=== PATIENT | male | born 1980 | race Caucasian/White ===

== ENCOUNTER 2023-12-04 20:17 | Observation (INO) | payer OTHER ==
[~2023-12-04] VITALS: Ht 172.7 cm; Wt 84.5 kg
[2023-12-04] MEDS ORDERED: Morphine Sulfate 4 MG/1 ML Injection IV ONE (20:40)
[2023-12-04] MEDS ORDERED: Ondansetron HCl 2 MG / ML 2ML Vial IV ONE (20:40)
[2023-12-04] MEDS ORDERED: NS 1,000 ML IV SCH ×2 (21:10→22:35)
[2023-12-04] MEDS ORDERED: Acetaminophen 325 MG TABLET PO PRN (21:10)
[2023-12-04] MEDS ORDERED: Acetaminophen 325 MG TABLET PO ONE (21:10)
[2023-12-04] MEDS ORDERED: Ondansetron HCl 2 MG / ML 2ML Vial IV PRN (21:10)
[2023-12-04] MEDS ORDERED: Morphine Sulfate 4 MG/1 ML Injection IV PRN (21:15)
[2023-12-04 22:31] VITALS: BP 140/77
--- NOTE | 2023-12-04 23:07 | NUR ---
ARRIVAL TO UNIT PT ARRIVED TO UNIT AT APPROX 2230. PT WAS ON GURNEY AND TRANSFERRED TO BED W/O ASST. PT ABLE TO ANSWER ALL QUESTIONS. PT ABD TNEDER TO PALP, MILDLY DISTENDED. PT HAVING TO N/V AT THIS TIME, RUNNING A FEVER OF 101.1. PT WILL BE NPO AT [facility], FOR SURGERY TOMORROW. NO OTHER NEEDS AT THIS TIME, CALL LIGHT WITHIN REACH
[2023-12-05] VITALS (13 sets, daily range): BP systolic 106–139; BP diastolic 65–86
--- NOTE | 2023-12-05 05:01 | NUR ---
SHIFT SUMMARY NO ACUTE CHANGES SINCE COMING TO THE UNIT. PT HAS BEEN RESTING. NPO SINCE MN. FLUIDS RUNNING. PT STATES HAS NOT VOIDED YET BUT IS GOING TO ATTEMPT HERE IN A LITTLE BIT. VSS. NO OTHER CONCERNS AT THIS TIME, CALL LIGHT WITHIN REACH
[2023-12-05] MEDS ORDERED: Lactated Ringer's 1,000 ML IV SCH ×2 (05:30→08:00)
[2023-12-05] MEDS ORDERED: Piperacillin/Tazobactam Sod 3.375 GM in NS 100 ML IV SCH (06:00)
--- NOTE | 2023-12-05 08:16 | NUR ---
PT TO OR AT THIS TIME
--- NOTE | 2023-12-05 08:25 | NUR ---
PT HAS 18G TO RIGHT HAND THAT FLUSHES WELL AND FLOWS TO GRAVITY.
--- NOTE | 2023-12-05 08:27 | NUR ---
PT HERE VIA [facility] APPY BY DR. PAREKH. Patient confirms NPO status and agrees with scheduled surgery. Pre-Op teaching done. Pt verbalizes understanding. History, Chart, Medications and Allergies reviewed before start of procedure.
[2023-12-05] MEDS ORDERED: FLU VACC TS2024-25(6MOS UP)/PF 45 MCG/0.5 ML SYRINGE IM ONE (08:30)
[2023-12-05] MEDS ORDERED: OxyCODONE HCL 5 MG TAB PO PRN (08:35)
[2023-12-05] MEDS ORDERED: Ondansetron HCl 2 MG / ML 2ML Vial IV PRN (08:35)
[2023-12-05] MEDS ORDERED: Ketorolac Tromethamine 15mg Vial IV PRN (08:40)
[2023-12-05] MEDS ORDERED: Bupivacaine 0.5% HCl 5 MG/ML 30MLVIAL ONE (08:40)
[2023-12-05] MEDS ORDERED: Sennosides 8.6 MG Tab PO SCH (09:00)
[2023-12-05] MEDS ORDERED: Midazolam HCl 1MG / ML 2ML Vial IV ONE (09:25)
[2023-12-05] MEDS ORDERED: Rocuronium Bromide 10 MG/ML 5ML Injection IV ONE (09:33)
[2023-12-05] MEDS ORDERED: propofoL 20 ML IV ONE (09:33)
[2023-12-05] MEDS ORDERED: FentaNYL Citrate 50 MCG/ML 2 ML Injection ONE (09:33)
[2023-12-05] MEDS ORDERED: Dexamethasone Sod Phos 10 MG/ML 1ML VIAL ONE (09:49)
[2023-12-05] MEDS ORDERED: Ondansetron HCl 2 MG / ML 2ML Vial ONE (10:12)
[2023-12-05] MEDS ORDERED: Sugammadex Sodium 200 MG/2ML SDV (100 MG/ML) ONE (10:12)
[2023-12-05] MEDS ORDERED: Phenylephrine HCl 100 MCG/ML-NS 10MLSYR (1MG/10ML) ONE (10:18)
[2023-12-05] MEDS ORDERED: Albuterol 2.5 MG/3 ML VIAL ONE (10:51)
[2023-12-05] MEDS ORDERED: ACET325 PO (12:28)
[2023-12-05] MEDS ORDERED: IBUP400 PO (12:28)
[2023-12-05] MEDS ORDERED: AMOCLA875 PO (12:29)
[2023-12-05] MEDS ORDERED: OXYC5 PO (12:29)
--- NOTE | 2023-12-05 14:46 | NUR ---
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 PT IS A/O, VSS. SURGICAL SITES WNL.PT DENIES PAIN, N/V. PT GIVEN CALL LIGHT AND INSTRUCTED TO CALL STAFF FOR 1ST TIME OOB.
--- NOTE | 2023-12-05 14:49 | NUR ---
DISCHARGE: PT DOING WELL POST OP. VSS, PT ABLE TO WALK AND VOID. PAIN MANAGED. SCRIPTS SENT TO [facility]. DC PACKET PRINTED AND PT EDUCATED. PT LEFT UNIT VIA WHEELCHAIR WITH JONI CHAIREZ AT 1440
== END 2023-12-05 14:35 | disposition home health service (06) ==
LOC: ER 20:17 → SURS 20:18 → ER 21:14 → SURS 21:14
PROVIDERS: Surgery; ADMIT Surgery
PROC: 0DTJ0ZZ Resection of Appendix, Open Approach (ICD-10-PCS; principal; 2023-12-05 08:30)
DX: K35.33 Acute appendicitis with perforation, localized peritonitis, and gangrene, with abscess (principal); Z88.8 Allergy status to other drugs, medicaments and biological substances; Z72.0 Tobacco use
CPT/HCPCS: 88304; 96374; 99284-25; A9270; J1100; J2250; J2270; J2371; J2405; J2543; J2704; J3010; J7030; J7120

== ENCOUNTER 2023-12-13 17:37 | Observation (INO) | payer OTHER ==
[~2023-12-13] VITALS: Ht 172.7 cm; Wt 88.5 kg
[~2023-12-13 17:37] MED LIST: ACET325 PO; AMOCLA875 PO; IBUP400 PO; OXYC5 PO
[2023-12-13 19:52] LABS: BASOPHILS ABSOLUTE AUTO 0.04 K/mm3 (0.00-0.23); BASOPHILS PERCENT AUTO 0 % (0-2); EOSINOPHILS ABSOLUTE AUTO 0.11 K/mm3 (0.00-0.68); EOSINOPHILS PERCENT AUTO 1 % (0-6); Hematocrit 43.7 % (37.0-53.0); Hemoglobin 15.5 g/dL (13.5-17.5); IMMATURE GRAN ABSOLUTE AUTO 0.04 K/mm3 (0.00-0.10); IMMATURE GRAN PERCENT AUTO 0 % (0-1); LYMPHOCYTES ABSOLUTE AUTO 1.56 K/mm3 (0.84-5.20); LYMPHOCYTES PERCENT AUTO 17 % (21-46); MONOCYTES ABSOLUTE AUTO 1.19 K/mm3 (0.16-1.47); MONOCYTES PERCENT AUTO 13 % (4-13); Mean Corpuscular HGB 30.2 pg (26.0-34.0); Mean Corpuscular HGB Conc 35.5 g/dL (31.5-36.5); Mean Corpuscular Volume 85 fL (80-100); Mean Platelet Volume 9.1 fL (9.1-12.4); NEUTROPHILS ABSOLUTE AUTO 6.34 K/mm3 (1.96-9.15); NEUTROPHILS PERCENT AUTO 68 % (41-73); Platelet Count 359 K/mm3 (150-400); RDW Coefficient Variation 11.9 % (11.7-14.2); RDW Standard Deviation 36.7 fL (35.1-46.3); Red Blood Cell Count 5.13 M/mm3 (4.30-5.90); White Blood Cell Count 9.28 K/mm3 (4.00-11.30)
[2023-12-13 20:19] LABS: Albumin, Blood 3.9 g/dL (3.4-5.0); Bilirubin, Total 0.6 mg/dL (0.1-1.0); Calcium, Blood 9.6 mg/dL (8.5-10.1); Creatinine, Blood 0.82 mg/dL (0.60-1.20); Globulin, Blood 4.1 g/dL (2.2-4.0); Potassium, Blood 3.8 mmol/L (3.5-5.5)
[2023-12-14] MEDS ORDERED: NS 1,000 ML IV SCH ×2 (02:20→04:00)
[2023-12-14] MEDS ORDERED: Ondansetron HCl 2 MG / ML 2ML Vial IV PRN (04:00)
[2023-12-14 11:16] VITALS: BP 149/94
[2023-12-14] MEDS ORDERED: FLU VACC TS2024-25(6MOS UP)/PF 45 MCG/0.5 ML SYRINGE IM SCH (12:25)
[2023-12-14] MEDS ORDERED: Lactated Ringer's 1,000 ML IV SCH (13:00)
[2023-12-14 15:25] VITALS: BP 141/81
--- NOTE | 2023-12-14 16:08 | NUR ---
Pt arived on floor at 1400, A-Ox4, denies SOB, denies any pain, ambulates independently, on RA. Lungs clear, heart regular, bowel sounds active, NPO, abdemen distended and slightly tender but soft, passing gas and had 1x small green loose BM during shift. Pt can make needs known, call montero in hand, bed in lowest position.
[2023-12-14 19:36] VITALS: BP 147/85
[2023-12-15 04:09] VITALS: BP 125/76
[2023-12-15 04:54] LABS: BASOPHILS ABSOLUTE AUTO 0.04 K/mm3 (0.00-0.23); BASOPHILS PERCENT AUTO 1 % (0-2); EOSINOPHILS ABSOLUTE AUTO 0.13 K/mm3 (0.00-0.68); EOSINOPHILS PERCENT AUTO 2 % (0-6); Hematocrit 42.5 % (37.0-53.0); Hemoglobin 14.3 g/dL (13.5-17.5); IMMATURE GRAN ABSOLUTE AUTO 0.03 K/mm3 (0.00-0.10); IMMATURE GRAN PERCENT AUTO 0 % (0-1); LYMPHOCYTES ABSOLUTE AUTO 1.56 K/mm3 (0.84-5.20); LYMPHOCYTES PERCENT AUTO 21 % (21-46); MONOCYTES ABSOLUTE AUTO 0.87 K/mm3 (0.16-1.47); MONOCYTES PERCENT AUTO 12 % (4-13); Mean Corpuscular HGB 29.7 pg (26.0-34.0); Mean Corpuscular HGB Conc 33.6 g/dL (31.5-36.5); Mean Corpuscular Volume 88 fL (80-100); Mean Platelet Volume 9.3 fL (9.1-12.4); NEUTROPHILS ABSOLUTE AUTO 4.89 K/mm3 (1.96-9.15); NEUTROPHILS PERCENT AUTO 65 % (41-73); Platelet Count 297 K/mm3 (150-400); RDW Coefficient Variation 12.1 % (11.7-14.2); RDW Standard Deviation 38.7 fL (35.1-46.3); Red Blood Cell Count 4.82 M/mm3 (4.30-5.90); White Blood Cell Count 7.52 K/mm3 (4.00-11.30)
--- NOTE | 2023-12-15 05:04 | NUR ---
SHIFT SUMMARY PT ABLE TO REST DURING THE SHIFT. PT WAS WALKING AROUND THE UNIT. PT HAS BEEN HAVING GAS ALL SHIFT, AND BURPING. PT HAD ONE GREEN BM TONIGHT. DENIES ANY PAIN. HOPING TO GO HOME TODAY. VSS. NO OTHER COCNERNS AT THIS TIME, CALL LIGHT WITHIN REACH
[2023-12-15 05:15] LABS: Albumin, Blood 3.4 g/dL (3.4-5.0); Albumin/Globulin Ratio 0.9 (0.8-1.8); Bilirubin, Total 0.5 mg/dL (0.1-1.0); Bun/Creatinine Ratio 11.7 (12.0-20.0); Calcium, Blood 8.7 mg/dL (8.5-10.1); Creatinine, Blood 0.77 mg/dL (0.60-1.20); Globulin, Blood 3.6 g/dL (2.2-4.0); Potassium, Blood 3.8 mmol/L (3.5-5.5)
[2023-12-15 07:21] VITALS: BP 143/81
[2023-12-15] MEDS ORDERED: Enoxaparin 40 MG/0.4 ML SYR SC SCH (09:00)
--- NOTE | 2023-12-15 09:55 | NUR ---
PT VERBALIZED UNDERSTANDING OF DISCHARGE INSTRUCTIONS. PAIN MANAGED AT THIS TIME WITHOUT MEDICATIONS. BOWEL TONES HEARD IN ALL QUAD. LAP SITES FROM PREVIOUS ADMISSION ON ABD C/D/I, CLOSED WITH WOUND GLUE. VSS. PT STATES THAT HE HAD A LARGE BOWEL MOVEMENT THIS MORNING. INDEPENDENTLY WALKED TO EXIT WHERE HIS RIDE IS PICKING HIM UP.
== END 2023-12-15 09:50 | disposition home or self-care (01) ==
LOC: ER 17:37 → SURS 17:38 → ER 12-14 03:59 → SURS 12-14 03:59
PROVIDERS: Emergency Medicine; ADMIT Surgery
DX: K56.609 Unspecified intestinal obstruction, unspecified as to partial versus complete obstruction (principal); E86.0 Dehydration; Z88.5 Allergy status to narcotic agent; Z88.8 Allergy status to other drugs, medicaments and biological substances; Z90.49 Acquired absence of other specified parts of digestive tract
CPT/HCPCS: 36415; 80053; 85025; 99284; G0378; J7030; J7120